=== PATIENT | male | born 1995 | race African-American/Black ===

== ENCOUNTER 2018-09-15 16:40 | Emergency (ER) | payer OTHER ==
[~2018-09-15] VITALS: Ht 190.5 cm; Wt 90.7 kg
--- NOTE | 2018-09-15 16:49 | NUR ---
BIB [facility]. PATIENT IS AWAKE AND ALERT, TRACKING HIS EYES TO MOVEMENT BUT HE IS NOT SPEAKING.
--- NOTE | 2018-09-15 16:51 | NUR ---
[employer] OFFICERS ([employer]) HERE SPEAKING TO PATIENT. PATIENT REMAINS NON VERBAL.
[2018-09-15] MEDS ORDERED: HALOPERIDOL LACTATE 5 MG/1 ML VIAL IV ONE (17:00)
[2018-09-15] MEDS ORDERED: diphenhydrAMINE 50 MG/1 ML VIAL IV ONE (17:00)
[2018-09-15] MEDS ORDERED: diphenhydrAMINE 50 MG/1 ML VIAL ONE (17:02)
[2018-09-15] MEDS ORDERED: HALOPERIDOL LACTATE 5 MG/1 ML VIAL ONE (17:02)
[2018-09-15 17:24] LABS: BASOPHILS # (AUTO) 0.1 K/uL (0.0-8.0); EOSINOPHILS % (AUTO) 0.5 % (0.0-7.0); HEMOGLOBIN 17.4 g/dL (12.5-16.3); LYMPHOCYTES # (AUTO) 2.2 K/uL (20.0-40.0); LYMPHOCYTES % (AUTO) 27.1 % (20.5-51.5); MEAN CORPUSCULAR HEMOGLOBIN 29.7 uug (23.8-33.4); MEAN CORPUSCULAR HGB CONC 35 g/dL (32.5-36.3); MEAN CORPUSCULAR VOLUME 85.3 fL (73.0-96.2); MONOCYTES # (AUTO) 0.7 K/uL (2.0-10.0); MONOCYTES % (AUTO) 8.4 % (0.0-11.0); NEUTROPHILS # (AUTO) 5.1 K/uL (1.8-8.9); PLATELET COUNT (AUTO) 265 K/uL (152-348); RED BLOOD CELL COUNT(AUTO) 5.85 MIL/uL (4.06-5.63); WHITE BLOOD COUNT (AUTO) 8.1 K/uL (3.6-10.2)
[2018-09-15 17:38] LABS: ETHANOL < 3 MG/DL (0-0)
[2018-09-15 17:43] LABS: CARBON DIOXIDE 21 mmol/L (21-32); CHLORIDE 101 mmol/L (98-107); CREATININE 1.5 mg/dL (0.6-1.3); GLUCOSE 97 mg/dL (74-106); UREA NITROGEN, BLOOD 27 mg/dL (7-18)
[2018-09-15 17:49] LABS: ALANINE AMINOTRANSFERASE 23 U/L (16-63); ALKALINE PHOSPHATASE 66 U/L (50-136); ASPARTATE AMINOTRANSFERASE 21 U/L (15-37); BILIRUBIN,DIRECT 0.2 mg/dL (0.0-0.2); BILIRUBIN,TOTAL 0.9 mg/dL (0.2-1.0); TOTAL PROTEIN, SERUM 9.4 g/dL (6.4-8.2)
[2018-09-15 17:51] LABS: ACETAMINOPHEN < 10.0 ug/mL (10-30)
--- NOTE | 2018-09-15 17:53 | NUR ---
PATIENT IS TALKING NOW. STATES "THIS HAPPENED TO ME A YEAR AGO AT [facility]." DENIES PAIN.
[2018-09-15] MEDS ORDERED: LIDOCAINE HCL 1% 20 ML VIAL IJ ONE (18:00)
[2018-09-15 18:14] LABS: THYROID STIMULATING HORMONE 1.319 mIU/mL (0.358-3.740)
--- NOTE | 2018-09-15 18:33 | NUR ---
LP UNSUCCESSFUL. URINE SENT TO LAB.
--- NOTE | 2018-09-15 18:34 | NUR ---
ALY TREJO C[employer] MANAGER CALLED FOR EVAL.
[2018-09-15 18:38] LABS: *BILIRUBIN,URIN 1+ (NEGATIVE); *BLOOD, URINE NEGATIVE (NEGATIVE); *COLOR,URINE DARK YELLOW (YELLOW); *KETONES,URINE 2+ (NEGATIVE); LEUKOCYTE ESTERASE ,URINE NEGATIVE (NEGATIVE); NITRITE, URINE NEGATIVE (NEGATIVE); UGLUCOSE NEGATIVE (NEGATIVE)
[2018-09-15 18:49] LABS: *CLARITY,URINE CLEAR (CLEAR); MUCUS,URINE MANY /LPF (0-FEW); WBC,URINE 0-3 /HPF (0-3)
[2018-09-15 18:50] LABS: *AMPHETAMINE, URINE NEGATIVE (NEGATIVE); *BARBITURATE, URINE NEGATIVE (NEGATIVE); *CANNABINOID, URINE NEGATIVE (NEGATIVE); *COCCAINE, URINE NEGATIVE (NEGATIVE); *OPIATE, URINE NEGATIVE (NEGATIVE); *PHENCYCLIDINE SCREEN,URINE NEGATIVE (NEGATIVE)
--- NOTE | 2018-09-15 19:29 | NUR ---
PATIENTS ROOM MATE HERE. PATIENT IS AWAKE AND ALERT. AWAITING FOR FIDELINA TUCKER TO ARRIVE.
--- NOTE | 2018-09-15 19:30 | NUR ---
HAND OFF REPORT GIVEN TO RADHA KEY
[2018-09-15] MEDS ORDERED: LORAZEPAM 2 MG/1 ML VIAL ONE (20:10)
[2018-09-15] MEDS ORDERED: IV NORMAL SALINE 1000 ML BAG IV ONE (20:15)
[2018-09-15] MEDS ORDERED: LORAZEPAM 2 MG/1 ML VIAL IV ONE (20:15)
--- NOTE | 2018-09-15 20:47 | NUR ---
Received report from rika RN, assumed care of pt., NAD, awaiting psych. eval from Boni Cui,
--- NOTE | 2018-09-15 20:55 | NUR ---
Pt. resting in bed, IV fluids infusing, NAD, awaiting Boni Cui,
--- NOTE | 2018-09-15 21:21 | NUR ---
Boni Cui in w/ pt. at bedside, roomates at bedside w/ pt.,
--- NOTE | 2018-09-15 21:45 | NUR ---
Patient discharged to home in stable conditon. Written and verbal after care instructions given. Patient verbalizes understanding of instructions. Pt. d/c per MD orders, all d/c papers signed, IV/ID band removed, all belongings w/ pt., left w/ friends w/ steady gait, in private vehicle, NAD
== END 2018-09-15 21:49 | disposition home or self-care (01) ==
LOC: ER 16:40
DX: F06.1 Catatonic disorder due to known physiological condition (principal)
CPT/HCPCS: 36415; 62270; 70450; 71045; 80048; 80076; 80307; 81001; 82140; 83605; 84443; 84484; 85025; 85730; 87040 ×2; 87086; 93005; 96374; 96375; 99284; G0480 ×2; G0481; J1200; J1630; J2060; J3490; 70030-TC; A4663; J7030